=== PATIENT | male | born 1970 | race Caucasian/White ===

== ENCOUNTER 2017-01-01 12:59 | Emergency (ER) | payer SELFPAY ==
[~2017-01-01] VITALS: Ht 167.6 cm; Wt 95.0 kg
[2017-01-01 13:00] VITALS: BP 169/90; PULSE 107; RESP 16; TEMP 99.5; O2SAT 100
--- NOTE | 2017-01-01 13:08 | PD ---
Physical Exam Date Seen by Provider: Jan 01, 2017 Time Seen by Provider: 13:06 Narrative 46 YOWM C/O DENTAL PAIN AND FACIAL SWELLING FOR 2 DAYS VS REVIEWED WAITING FOR BED PLACEMENT Data Data Last Documented VS Vital Signs Date Time Temp Pulse Resp B/P Pulse Ox O2 Delivery O2 Flow Rate FiO2 01/01/17 13:00 99.5 107 16 169/90 100 MDM Supervised Visit with OCTAVIO: Adis Chow Jan 01, 2017 13:07
[2017-01-01] MEDS ORDERED: predniSONE 20 MG TAB PO ONE (14:30)
[2017-01-01] MEDS ORDERED: CLIN1CAP5 PO (14:30)
[2017-01-01] MEDS ORDERED: IBUP800T23 PO (14:30)
[2017-01-01] MEDS ORDERED: PRED-503 PO (14:30)
[2017-01-01] MEDS ORDERED: CLINDAMYCIN 150 MG CAP PO SCH (14:30)
[2017-01-01] MEDS ORDERED: PERI0.126 SWISH-SPIT (14:31)
--- NOTE | 2017-01-01 14:32 | PD ---
HPI Chief Complaint: Oral / Dental Pain or Problem Time Seen by Provider: 14:28 Travel History International Travel<30 days: No Contact w/Intl Traveler<30days: No Traveled to known affect area: No History of Present Illness HPI 46-year-old male presents emergency Department with complaint of right-sided facial swelling since yesterday. Reports tenderness to the area but denies pain. Says he only has a few teeth and has a appointment with a dentist [facility] next week to discuss removing his teeth and preparing for dentures. Reports pain to the right upper gums when eating and has been eating soup. Denies fever, vomiting. Denies throat pain or difficulty swallowing. Symptoms are mild in severity. Has not taken any medications or tried any treatments alleviate his symptoms. Has no known allergies. No other medical complaints. No other modifying factors or associated signs and symptoms. PFSH Past Medical History Cardiovascular Problems: Yes (HTN) Social History Tobacco Use: No Allergies-Medications (Allergen,Severity, Reaction): Coded Allergies: No Known Allergies (Unverified , 01/01/17) Reported Meds & Prescriptions Reported Meds & Active Scripts Active Peridex Liq (Chlorhexidine Gluconate (Mouth) Liq) 0.12% Soln 15 Ml SWISH-SPIT BID 10 Days Deltasone (Prednisone) 20 Mg Tab 40 Mg PO DAILY 4 Days start 01/02/2017 Clindamycin (Clindamycin HCl) 150 Mg Cap 450 Mg PO Q6H 10 Days Ibuprofen 800 Mg Tab 800 Mg PO Q6HR PRN Review of Systems Except as stated in HPI: all other systems reviewed are Neg Physical Exam Narrative GENERAL: Well-nourished, well-developed male patient, in no acute distress; low-grade fever 99.5, nontoxic-appearing SKIN: Warm and dry. HEAD: Atraumatic. Normocephalic. Right sided facial edema; without erythema or tenderness on palpation. No lymphadenopathy. EYES: Pupils equal and round. No scleral icterus. No injection or drainage. ENT: Mucosa pink and moist. No erythema or exudates. No uvular edema. No uvular , palatal, or tonsillar deviation. Airway patent. MOUTH: Mucous membranes moist, no lesions, tongue and gums appear normal. Edentulous with approximately 4 decayed teeth noted. There are some teeth noted to the gumline. Right upper gingiva is mildly edematous and erythematous when compared to the left; no obvious abscess noted; no tenderness on palpation to the gingiva, no drainage no outpouching of the gum. NECK: Trachea midline. No lymphadenopathy. CARDIOVASCULAR: Regular rate. RESPIRATORY: No accessory muscle use. GASTROINTESTINAL: Obese. MUSCULOSKELETAL: No obvious deformities. No clubbing. No cyanosis. No edema. NEUROLOGICAL: Awake and alert. Oriented 3. No obvious cranial nerve deficits. Motor grossly within normal limits. Normal speech. PSYCHIATRIC: Appropriate mood and affect; insight and judgment normal. Data Data Last Documented VS Vital Signs Date Time Temp Pulse Resp B/P Pulse Ox O2 Delivery O2 Flow Rate FiO2 01/01/17 13:00 99.5 107 16 169/90 100 Orders Clindamycin (Cleocin) (01/01/17 14:30) Prednisone (Deltasone) (01/01/17 14:30) [facility] Medical Decision Making Medical Screen Exam Complete: Yes Emergency Medical Condition: Yes Medical Record Reviewed: Yes Differential Diagnosis Dental abscess, gingivitis, right-sided facial swelling Narrative Course 46-year-old male with right-sided swelling of the face. Possible dental abcess. His right upper gingiva is mildly edematous and with some erythema compared to the left upper gingiva. He is edentulous with just a few teeth that are decaying. There are some teeth noted to the gumline. Patient has low- grade fever of 99.5. He is nontoxic-appearing. He denies fever or vomiting at home. Patient has a dentist appointment [facility] next week. Clindamycin and Deltasone administered in the ER. Clindamycin, Deltasone, Peridex mouth rinse, ibuprofen prescribed for home. Instructed patient to follow up with primary care provider. Patient verbalizes understanding and agreement with treatment plan. Patient is medically cleared and stable for discharge. Discussed reasons to return to the emergency department. Patient agrees with treatment plan. The patients vital signs are stable and the patient is stable for outpatient follow-up and treatment. Patient discharged home, stable and in no acute distress. Diagnosis Primary Impression: Swelling of right side of face Referrals: Dentist Primary Care Physician Patient Instructions: Dental Abscess (ED), General Instructions Departure Forms: Tests/Procedures, Work Release Enter return to work date: Jan 02, 2017 Additional Instructions: Complete full course of antibiotics Ibuprofen or Tylenol as directed and as needed to reduce pain and inflammation Warm or cool compresses to the affected area Follow-up with dentist Follow-up with primary care provider Return to emergency department immediately with worsening of symptoms Med/Other Pt SpecificInfo: Prescription(s) given Scripts Chlorhexidine Gluconate (Mouth) Liq (Peridex Liq)0.12% Soln15 Ml SWISH-SPIT BID 10 Days Ref 0 Prov:Peg Gallardo 01/01/17 Prednisone (Deltasone)20 Mg Tab40 Mg PO DAILY 4 Days Ref 0 start 01/02/2017 Prov:Peg Gallardo 01/01/17 Clindamycin 150 Mg [id number] Mg PO Q6H 10 Days Ref 0 Prov:Peg Gallardo 01/01/17 Ibuprofen 800 Mg [id number] Mg PO Q6HR PRN (PAIN) #30 TAB Ref 0 Prov:Peg Gallardo 01/01/17 Disposition: 01 DISCHARGE HOME Condition: Stable Peg Gallardo Jan 01, 2017 14:32
[2017-01-01 14:34] VITALS: PULSE 98
[2017-01-01] MEDS ORDERED: LISI-590 PO (15:17)
== END 2017-01-01 15:18 | disposition home or self-care (01) ==
LOC: NEPK 12:59
DX: R22.0 Localized swelling, mass and lump, head (principal); I10 Essential (primary) hypertension; Z79.899 Other long term (current) drug therapy
CPT/HCPCS: 99284; J7512